=== PATIENT | male | born 1980 | race American Indian/Alaskan Native ===

== ENCOUNTER 2016-04-05 09:34 | Outpatient (CLI) | payer MEDICARE ==
[2016-04-05 10:02] LABS: Basophils % (Auto) 0.8 % (0.0-1.8); Eosinophils % (Auto) 2.1 % (0.0-4.3); Hematocrit 37.4 % (35.5-45.6); Hemoglobin 12.8 gm/dl (11.8-15.2); Mean Corpuscular HGB Conc 34 % (32-34); Mean Corpuscular Hemoglobin 27 pg (28-32); Mean Corpuscular Volume 78 fl (84-94); Platelet Count 334 K/mm3 (140-440); Red Blood Count 4.78 M/mm3 (3.65-5.03); Red Cell Distribution Width 16.1 % (13.2-15.2); White Blood Count 8.9 K/mm3 (4.5-11.0)
[2016-04-05 10:12] LABS: BUN/Creatinine Ratio 18.75; Calcium 8.7 mg/dL (8.4-10.2); Chloride 104.2 mmol/L (98-107); Potassium 4.2 mmol/L (3.6-5.0)
[2016-04-05 10:13] LABS: Bilirubin,Urine NEG (Negative); Blood,Urine MOD (Negative); Ketones,Urine NEG (Negative); Leukocyte Esterase,Urine NEG (Negative); Mucus,Urine FEW /HPF; Nitrite,Urine NEG (Negative); Urobilinogen,Urine < 2.0 mg/dL (<2.0)
== END 2016-04-05 09:35 | disposition home or self-care (01) ==
LOC: LAB 09:34
PROVIDERS: ATTEND Internal Medicine Nephrology
DX: I12.9 Hypertensive chronic kidney disease with stage 1 through stage 4 chronic kidney disease, or unspecified chronic kidney disease (principal); N18.2 Chronic kidney disease, stage 2 (mild); E11.22 Type 2 diabetes mellitus with diabetic chronic kidney disease
CPT/HCPCS: 36415; 80048; 81001; 82570; 84156; 85025

== ENCOUNTER 2016-07-18 08:27 | Outpatient (CLI) | payer MEDICARE ==
[2016-07-18 08:53] LABS: Basophils % (Auto) 0.7 % (0.0-1.8); Eosinophils % (Auto) 2.9 % (0.0-4.3); Hematocrit 36.8 % (35.5-45.6); Hemoglobin 12.5 gm/dl (11.8-15.2); Mean Corpuscular HGB Conc 34 % (32-34); Mean Corpuscular Hemoglobin 27 pg (28-32); Mean Corpuscular Volume 79 fl (84-94); Platelet Count 292 K/mm3 (140-440); White Blood Count 6.7 K/mm3 (4.5-11.0)
[2016-07-18 08:57] LABS: Bacteria,Urine 1+ /HPF (Negative); Bilirubin,Urine NEG (Negative); Blood,Urine MOD (Negative); Ketones,Urine NEG (Negative); Leukocyte Esterase,Urine NEG (Negative); Nitrite,Urine NEG (Negative); Urobilinogen,Urine < 2.0 mg/dL (<2.0)
[2016-07-18 08:59] LABS: Protein,Urine >500 mg/dL (Negative)
[2016-07-18 09:10] LABS: BUN/Creatinine Ratio 15.5; Calcium 8.7 mg/dL (8.4-10.2); Chloride 105.6 mmol/L (98-107); Potassium 4.1 mmol/L (3.6-5.0)
[2016-07-18 09:44] LABS: HIV-1 Antigen p24 Non React (Non React); HIVR-1/2 Ab Non React (Non React)
== END 2016-07-18 08:28 | disposition home or self-care (01) ==
LOC: LAB 08:27
PROVIDERS: ATTEND Internal Medicine Nephrology
DX: I12.9 Hypertensive chronic kidney disease with stage 1 through stage 4 chronic kidney disease, or unspecified chronic kidney disease (principal); N18.3 Chronic kidney disease, stage 3 (moderate); E11.22 Type 2 diabetes mellitus with diabetic chronic kidney disease; R80.0 Isolated proteinuria; R60.0 Localized edema
CPT/HCPCS: 36415; 80048; 81001; 82570; 84156; 85025; 86038; 86160; 86706; 86803; 87806

== ENCOUNTER 2016-11-18 07:57 | Outpatient (CLI) | payer MEDICARE ==
[2016-11-18] MEDS ORDERED: XYLOCAINE TOPICAL 4% TP ONE ×2 (08:24→09:19)
== END 2016-11-18 07:58 | disposition home or self-care (01) ==
LOC: WOUND 07:57
PROVIDERS: ATTEND Podiatrist
DX: E11.621 Type 2 diabetes mellitus with foot ulcer (principal); L97.522 Non-pressure chronic ulcer of other part of left foot with fat layer exposed; L97.512 Non-pressure chronic ulcer of other part of right foot with fat layer exposed; E11.40 Type 2 diabetes mellitus with diabetic neuropathy, unspecified; L84 Corns and callosities; I10 Essential (primary) hypertension; Z87.891 Personal history of nicotine dependence; Z72.89 Other problems related to lifestyle
CPT/HCPCS: 11042; 87075; 87116; G0463; 87186

== ENCOUNTER 2016-11-25 08:10 | Outpatient (CLI) | payer MEDICARE ==
[2016-11-25] MEDS ORDERED: XYLOCAINE TOPICAL 4% TP ONE (08:16)
== END 2016-11-25 08:11 | disposition home or self-care (01) ==
LOC: WOUND 08:10
PROVIDERS: ATTEND Podiatrist
DX: E11.621 Type 2 diabetes mellitus with foot ulcer (principal); L97.522 Non-pressure chronic ulcer of other part of left foot with fat layer exposed; L97.512 Non-pressure chronic ulcer of other part of right foot with fat layer exposed; E11.40 Type 2 diabetes mellitus with diabetic neuropathy, unspecified; I10 Essential (primary) hypertension; Z87.891 Personal history of nicotine dependence; Z72.89 Other problems related to lifestyle

== ENCOUNTER 2018-07-06 08:43 | Outpatient (CLI) | payer MEDICARE ==
[2018-07-06 09:19] LABS: Hematocrit 32.8 % (35.5-45.6); Hemoglobin 11.1 gm/dl (11.8-15.2); Mean Corpuscular HGB Conc 34 % (32-34); Mean Corpuscular Volume 78 fl (84-94); Platelet Count 325 K/mm3 (140-440); Red Blood Count 4.23 M/mm3 (3.65-5.03); Red Cell Distribution Width 16.3 % (13.2-15.2)
[2018-07-06 09:47] LABS: Albumin 3.5 g/dL (3.9-5); Calcium 8.9 mg/dL (8.4-10.2)
== END 2018-07-06 08:44 | disposition home or self-care (01) ==
LOC: LAB 08:43
PROVIDERS: ATTEND Internal Medicine Nephrology
DX: I12.0 Hypertensive chronic kidney disease with stage 5 chronic kidney disease or end stage renal disease (principal); N18.5 Chronic kidney disease, stage 5
CPT/HCPCS: 36415; 80048; 82040; 84100; 85027

== ENCOUNTER 2018-08-10 08:25 | Outpatient (CLI) | payer MEDICARE ==
[2018-08-10 09:03] LABS: Hematocrit 30.8 % (35.5-45.6); Hemoglobin 10.6 gm/dl (11.8-15.2); Mean Corpuscular HGB Conc 34 % (32-34); Mean Corpuscular Volume 76 fl (84-94); Platelet Count 330 K/mm3 (140-440); Red Blood Count 4.03 M/mm3 (3.65-5.03); Red Cell Distribution Width 15.6 % (13.2-15.2)
[2018-08-10 09:16] LABS: Calcium 8.2 mg/dL (8.4-10.2)
== END 2018-08-10 08:26 | disposition home or self-care (01) ==
LOC: LAB 08:25
PROVIDERS: ATTEND Family Medicine
DX: I12.9 Hypertensive chronic kidney disease with stage 1 through stage 4 chronic kidney disease, or unspecified chronic kidney disease (principal); N18.4 Chronic kidney disease, stage 4 (severe); Z86.2 Personal history of diseases of the blood and blood-forming organs and certain disorders involving the immune mechanism
CPT/HCPCS: 36415; 80048; 82040; 84100; 85027

== ENCOUNTER 2018-11-13 08:23 | Outpatient (CLI) | payer MEDICARE ==
[2018-11-13 08:41] LABS: Basophils % (Auto) 0.9 % (0.0-1.8); Eosinophils # (Auto) 0.1 K/mm3 (0.0-0.4); Eosinophils % (Auto) 2.8 % (0.0-4.3); Hematocrit 29.7 % (35.5-45.6); Hemoglobin 10.2 gm/dl (11.8-15.2); Lymphocytes # (Auto) 0.9 K/mm3 (1.2-5.4); Lymphocytes % (Auto) 17.4 % (13.4-35.0); Mean Corpuscular HGB Conc 34 % (32-34); Mean Corpuscular Volume 77 fl (84-94); Monocytes # (Auto) 0.5 K/mm3 (0.0-0.8); Monocytes % (Auto) 10.5 % (0.0-7.3); Platelet Count 332 K/mm3 (140-440); Red Blood Count 3.88 M/mm3 (3.65-5.03)
[2018-11-13 09:12] LABS: Albumin 3.3 g/dL (3.9-5); Calcium 8.7 mg/dL (8.4-10.2)
== END 2018-11-13 08:24 | disposition home or self-care (01) ==
LOC: LAB 08:23
PROVIDERS: ATTEND Internal Medicine Nephrology
DX: I12.0 Hypertensive chronic kidney disease with stage 5 chronic kidney disease or end stage renal disease (principal); N18.5 Chronic kidney disease, stage 5; E55.9 Vitamin D deficiency, unspecified
CPT/HCPCS: 36415; 80048; 82040; 82306; 83970; 84100; 85025

== ENCOUNTER 2019-01-22 08:37 | Outpatient (CLI) | payer MEDICARE ==
[2019-01-22 09:12] LABS: Basophils % (Auto) 0.7 % (0.0-1.8); Eosinophils # (Auto) 0.1 K/mm3 (0.0-0.4); Eosinophils % (Auto) 2.1 % (0.0-4.3); Hematocrit 26.7 % (35.5-45.6); Hemoglobin 8.9 gm/dl (11.8-15.2); Lymphocytes # (Auto) 1.2 K/mm3 (1.2-5.4); Lymphocytes % (Auto) 19.1 % (13.4-35.0); Mean Corpuscular HGB Conc 33 % (32-34); Mean Corpuscular Volume 77 fl (84-94); Monocytes # (Auto) 0.8 K/mm3 (0.0-0.8); Monocytes % (Auto) 13.3 % (0.0-7.3); Platelet Count 333 K/mm3 (140-440); Red Blood Count 3.49 M/mm3 (3.65-5.03); Red Cell Distribution Width 16.7 % (13.2-15.2)
[2019-01-22 09:28] LABS: Albumin 3.4 g/dL (3.9-5); Calcium 8.4 mg/dL (8.4-10.2)
[2019-01-25 12:54] LABS: Vitamin D, 25-OH, D2 <4 ng/mL
== END 2019-01-22 08:38 | disposition home or self-care (01) ==
LOC: LAB 08:37
PROVIDERS: ATTEND Internal Medicine Nephrology
DX: N18.5 Chronic kidney disease, stage 5 (principal); E55.9 Vitamin D deficiency, unspecified; Z88.6 Allergy status to analgesic agent
CPT/HCPCS: 36415; 80048; 82040; 82306; 83970; 84100; 85025

== ENCOUNTER 2019-02-13 13:31 | Outpatient (CLI) | payer MEDICARE ==
[2019-02-13 14:11] LABS: Albumin 3.4 g/dL (3.9-5); Calcium 9.1 mg/dL (8.4-10.2)
== END 2019-02-13 13:32 | disposition home or self-care (01) ==
LOC: LAB 13:31
PROVIDERS: ATTEND Internal Medicine Nephrology
DX: I12.0 Hypertensive chronic kidney disease with stage 5 chronic kidney disease or end stage renal disease (principal); N18.5 Chronic kidney disease, stage 5; Z86.2 Personal history of diseases of the blood and blood-forming organs and certain disorders involving the immune mechanism
CPT/HCPCS: 36415; 80048; 82040; 84100

== ENCOUNTER 2019-03-26 08:20 | Outpatient (CLI) | payer MEDICARE ==
[2019-03-26 08:43] LABS: Basophils % (Auto) 0.8 % (0.0-1.8); Eosinophils # (Auto) 0.3 K/mm3 (0.0-0.4); Eosinophils % (Auto) 4.7 % (0.0-4.3); Hematocrit 25.8 % (35.5-45.6); Hemoglobin 8.8 gm/dl (11.8-15.2); Lymphocytes % (Auto) 18.1 % (13.4-35.0); Mean Corpuscular HGB Conc 34 % (32-34); Mean Corpuscular Volume 78 fl (84-94); Monocytes # (Auto) 0.6 K/mm3 (0.0-0.8); Monocytes % (Auto) 11.5 % (0.0-7.3); Platelet Count 319 K/mm3 (140-440); Red Blood Count 3.29 M/mm3 (3.65-5.03); Red Cell Distribution Width 16.4 % (13.2-15.2)
[2019-03-26 09:24] LABS: Albumin 3.3 g/dL (3.9-5); Calcium 9.3 mg/dL (8.4-10.2)
== END 2019-03-26 08:21 | disposition home or self-care (01) ==
LOC: LAB 08:20
PROVIDERS: ATTEND Internal Medicine Nephrology
DX: N18.5 Chronic kidney disease, stage 5 (principal)
CPT/HCPCS: 36415; 80048; 82040; 83970; 84100; 85025

== ENCOUNTER 2019-04-23 08:36 | Outpatient (CLI) | payer MEDICARE ==
[2019-04-23 08:53] LABS: Basophils # (Auto) 0.1 K/mm3 (0.0-0.1); Basophils % (Auto) 1.3 % (0.0-1.8); Eosinophils # (Auto) 0.2 K/mm3 (0.0-0.4); Eosinophils % (Auto) 5.1 % (0.0-4.3); Hematocrit 22.5 % (35.5-45.6); Hemoglobin 7.7 gm/dl (11.8-15.2); Lymphocytes # (Auto) 0.9 K/mm3 (1.2-5.4); Lymphocytes % (Auto) 19.5 % (13.4-35.0); Mean Corpuscular HGB Conc 34 % (32-34); Mean Corpuscular Volume 79 fl (84-94); Monocytes # (Auto) 0.7 K/mm3 (0.0-0.8); Monocytes % (Auto) 15.6 % (0.0-7.3); Platelet Count 306 K/mm3 (140-440); Red Blood Count 2.86 M/mm3 (3.65-5.03); Red Cell Distribution Width 16.2 % (13.2-15.2)
[2019-04-23 09:15] LABS: Albumin 3.2 g/dL (3.9-5); Calcium 8.9 mg/dL (8.4-10.2)
== END 2019-04-23 08:37 | disposition home or self-care (01) ==
LOC: LAB 08:36
PROVIDERS: ATTEND Internal Medicine Nephrology
DX: N18.5 Chronic kidney disease, stage 5 (principal)
CPT/HCPCS: 36415; 80048; 82040; 84100; 85025

== ENCOUNTER 2019-05-21 08:56 | Outpatient (CLI) | payer MEDICARE ==
[2019-05-21 09:19] LABS: Eosinophils # (Auto) 0.2 K/mm3 (0.0-0.4); Eosinophils % (Auto) 4.8 % (0.0-4.3); Hematocrit 20.3 % (35.5-45.6); Lymphocytes % (Auto) 24.1 % (13.4-35.0); Mean Corpuscular HGB Conc 34 % (32-34); Mean Corpuscular Volume 78 fl (84-94); Monocytes # (Auto) 0.6 K/mm3 (0.0-0.8); Monocytes % (Auto) 15.4 % (0.0-7.3); Platelet Count 306 K/mm3 (140-440); Red Blood Count 2.58 M/mm3 (3.65-5.03); Red Cell Distribution Width 15.8 % (13.2-15.2)
[2019-05-21 09:40] LABS: Albumin 3.2 g/dL (3.9-5); Calcium 8.4 mg/dL (8.4-10.2)
== END 2019-05-21 08:57 | disposition home or self-care (01) ==
LOC: LAB 08:56
PROVIDERS: ATTEND Internal Medicine Nephrology
DX: N18.5 Chronic kidney disease, stage 5 (principal)
CPT/HCPCS: 36415; 80048; 82040; 84100; 85025

== ENCOUNTER 2019-08-07 05:54 | Day surgery (SDC) | payer MEDICARE ==
[2019-08-07] MEDS ORDERED: SODIUM CHLORIDE 0.9% 1000 ML 1,000 ML IV SCH (06:00)
[2019-08-07] MEDS ORDERED: MIDAZOLAM 2 MG/2 ML INJ IV NR (06:00)
[2019-08-07] MEDS ORDERED: ceFAZolin/Water 2 GM/20 ML 2 GM/20 ML SYRINGE IV NR (06:00)
[2019-08-07] MEDS ORDERED: fentaNYL 100 MCG/2 ML INJ IV PRN ×2 (06:00→07:19)
--- NOTE | 2019-08-07 07:21 | Anesthesia Day of Surgery ---
Anesthesia Day of Surgery - Day of Surgery Patient Examined: Yes Patient H&P Reviewed: Yes Patient is NPO: Yes
--- NOTE | 2019-08-07 07:21 | Anesthesia Consultation ---
Anesthesia Consult and Med Hx Date of service: 08/07/19 - Airway Anesthetic Teeth Evaluation: Good ROM Head & Neck: Adequate Mental/Hyoid Distance: Adequate Mallampati Class: Class II Intubation Access Assessment: Probably Good - Pulmonary Exam CTA: Yes - Cardiac Exam Cardiac Exam: RRR - Pre-Operative Health Status ASA Pre-Surgery Classification: ASA3 Proposed Anesthetic Plan: General - Pre-Anesthesia Comment Pre-Anesthesia Comments: Patient declines nerve block and requests GA. - Pulmonary Hx Smoking: No Hx Respiratory Symptoms: No Hx Sleep Apnea: No (SNORES) - Cardiovascular System Hx Hypertension: Yes (took antihypertensives) Hx Heart Attack/AMI: No Hx Percutaneous Transluminal Coronary Angioplasty (PTCA): No - Central Nervous System CVA: No Hx Psychiatric Problems: No - Gastrointestinal Hx Gastroesophageal Reflux Disease: No - Endocrine Hx End Stage Renal Disease: Yes (last HD 08/06/2019) Hx Liver Disease: No Hx Insulin Dependent Diabetes: Yes (sliding scale) Hx Thyroid Disease: No - Hematic Hx Anemia: Yes Hx Sickle Cell Disease: No - Other Systems Hx Alcohol Use: Yes (OCC. MIXED DRINK) - Additional Comments Anesthesia Medical History Comments: No hx anesthetic complications.
[2019-08-07 07:26] LABS: Hematocrit 38.4 % (35.5-45.6); Mean Corpuscular HGB Conc 34 % (32-34); Mean Corpuscular Volume 84 fl (84-94); Platelet Count 211 K/mm3 (140-440); Red Blood Count 4.58 M/mm3 (3.65-5.03); Red Cell Distribution Width 17.5 % (13.2-15.2)
[2019-08-07] MEDS ORDERED: HYDROmorphone 1 MG/1 ML INJ ONE (07:33)
[2019-08-07] MEDS ORDERED: propofoL 200 MG/20 ML VIAL IV ONE ×2 (07:34→08:35)
[2019-08-07] MEDS ORDERED: LIDOCAINE MPF (2%) 20 MG/1 ML VIAL 5 ML ONE (07:34)
[2019-08-07] MEDS ORDERED: SODIUM CHLORIDE 0.9% 250ML 250 ML ONE (07:38)
[2019-08-07] MEDS ORDERED: HEPARIN 10,000 UNITS/10 ML VIAL ONE (07:38)
[2019-08-07 07:39] LABS: Calcium 8.9 mg/dL (8.4-10.2)
[2019-08-07] MEDS ORDERED: SODIUM CHLORIDE 0.9% 500 ML 500 ML ONE (07:39)
[2019-08-07] MEDS ORDERED: rifAMPin 600 MG VIAL ONE (07:40)
[2019-08-07] MEDS ORDERED: BUPIVACAINE/PF (0.5%) 5 MG/1 ML 10 ML VIAL INFILTRATI ONE ×2 (07:40→08:55)
[2019-08-07] MEDS ORDERED: SODIUM CHLORIDE 0.9% 500 ML IVPB IRRIGATION ONE (08:54)
[2019-08-07] MEDS ORDERED: HEPARIN 10,000 UNITS/10 ML VIAL IR ONE (08:54)
[2019-08-07] MEDS ORDERED: SODIUM CHLORIDE 0.9% IRR 1,500 ML BOTTLE IR ONE (08:55)
[2019-08-07] MEDS ORDERED: SODIUM CHLORIDE 0.9% 250 ML IVPB IR ONE (09:46)
--- NOTE | 2019-08-07 10:55 | Short Stay Summary ---
Short Stay Documentation Date of service: 08/07/19 Narrative H&P: See H&P - History H&P: obtained from office - Allergies and Medications Current Medications: Allergies tramadol Allergy (Verified 11/18/16 08:29) Vomiting Home Medications Medication Instructions Recorded Confirmed Last Taken Type Insulin Detemir (Nf) [Levemir See Protocol SQ QAC 12/03/15 08/07/19 07/05/19 08:00 History Flextouch (Nf)] Insulin Glargine,Hum.rec.anlog 30 units SQ QHS 12/03/17 08/07/19 07/24/19 21:00 History [Toujeo Solostar] amLODIPine 10 mg PO DAILY 12/03/17 08/07/19 08/07/19 05:00 History hydrALAZINE [Apresoline TAB] 100 mg PO TID #90 tab 12/09/17 08/07/19 08/07/19 05:00 Rx Active Medications Fentanyl (Sublimaze) 50 mcg IV Q5MIN PRN PRN Reason: Pain , Severe (7-10) Stop: 08/07/19 23:00 Cefazolin Sodium (Ancef/Sterile Water 2 Gm/20 Ml) 2 gm in 20 mls @ 80 mls/hr IV PREOP NR; Protocol Stop: 08/07/19 23:59 Sodium Chloride (Nacl 0.9% 1000 Ml) 1,000 mls @ 42 mls/hr IV DIRECT BAMBI Stop: 08/07/19 23:59 Last Admin: 08/07/19 07:30 Dose: 42 mls/hr Documented by: Midazolam HCl (Versed) 2 mg IV PREOP NR Stop: 08/07/19 23:59 Last Admin: 08/07/19 07:40 Dose: 2 mg Documented by: - Brief post op/procedure progress note Date of procedure: 08/07/19 Pre-op diagnosis: End-Stage Renal Disease Post-op diagnosis: same Procedure: 1. Creation of Left Brachial Artery to Left Axillary Vein AV Graft with 7 mm Bovine Artegraft Anesthesia: GETA Surgeon: JAMEEL WATSON Estimated blood loss: minimal Pathology: none Condition: stable - Disposition Condition at discharge: Good Disposition: DC-01 TO HOME OR SELFCARE Short Stay Discharge Plan Activity: other (No heavy lifting with left arm for 2 weeks.) Wound: open to air, keep clean and dry, other (Okay to Wash the Left Arm Wound with Soap and Water but Do Not Soak in Water for 2 Weeks.) Follow up with: JAMEEL WATSON MD [Staff Physician] - 14 Days Prescriptions: HYDROcodone/APAP 7.5-325 [[place] 7.5/325] 1 each PO Q6HR PRN #40 tablet PRN Reason: Pain
--- NOTE | 2019-08-07 11:00 | Operative Report ---
Operative Report Operative Report: Date of procedure: 08/07/2019 Pre-operative diagnosis: End-Stage Renal Disease Post-operative diagnosis: Same Procedure(s): 1. Creation of Left Brachial Artery to Axillary Vein AV Graft with 7 mm Bovine Graft Artergraft Surgeon: Sandro Floyd MD Stereo Map Plotter Operator: None Anesthesia: General Endotracheal Anesthesia EBL: Minimal Counts: Correct Complications: None Condition: Stable Findings: Exploration of the cephalic vein demonstrated that the vein was atretic and not adequate for creation of a fistula. The arteriovenous graft had a palpable thrill and there was a palpable radial pulse at the completion of the case. Specimen: None Indication: The patient is a 39-year-old male with a history of end-stage renal disease who is currently on hemodialysis through a right internal jugular permacath. He is in need of permanent dialysis access and a vein mapping suggested that he was a candidate for creation of an arteriovenous fistula. He was given the risk, benefits, and alternative procedures and consented to the procedure. Description of Procedure: The patient was brought to the operating room and laid in supine position after general endotracheal anesthesia was achieved the left arm was prepped and draped in normal sterile fashion. A transverse incision was created just below the antecubital crease and carried down to the cephalic vein using sharp dissection. The cephalic vein was explored and found to be atretic, likely secondary to lab draws, and was not adequate for creation of a brachiocephalic fistula. I used ultrasound to explore the remainder of the vein and the vein throughout the remainder the arm appeared to be atretic throughout. I was able to dissect the brachial artery through this incision. The brachial artery was dissected out circumferentially both proximally and distally and controlled with vessel loops. A second incision was created in longitudinal fashion on the medial aspect of the arm just distal to the axillary crease and carried down to the axillary vein using sharp dissection. Axillary vein was dissected out circumferentially and controlled with a vessel loop. I then used a Aliyah-Wick tunneler to tunnel from the brachial artery incision to the axillary vein incision and then put an 7 mm bovine through the tunnel. I infused with heparinized saline to ensure that it was not twisted or kinked. I put the brachial artery vessel loops on tension controlling the flow and then created an arteriotomy using an 11 blade and Yang scissors. I beveled the graft and created an end-to-side anastomosis using 6-0 Prolene running fashion. I clamped the graft just proximal to the anastomosis and then released the vessel loops restoring flow in the brachial artery. I placed quick clot in incision to achieve hemostasis. I cut the proximal end of the graft to the appropriate length and beveled the graft in preparation for a venous anastomosis. I controlled the axillary vein a Satinsky clamp and created a venotomy using an 11 blade and Yang scissors. I created an end to side anastomosis using a 6-0 Prolene in running fashion. Prior to completing the anastomosis I flushed the graft to ensure there was no thrombus and then completed the anastamosis. I released all clamps allowing flow into the AV graft which had an excellent thrill. I packed the wound with quick clot to achieve hemostasis. I anesthetized both wounds with 0.5% Marcaine and then closed both wounds in 2 layers using 3-0 Vicryl in running fashion in the deep dermal layer and 4-0 Monocryl in running fashion the subcuticular layer. I dressed both wounds with Dermabond. The patient tolerated the procedure well all sponge needle and instrument counts were correct the patient was taken to recovery in stable condition.
[2019-08-07 11:59] VITALS: BP 144/81
[2019-08-07] MEDS ORDERED: HYDROcodone/ACETAMINOPHEN 7.5-325MG TAB PO PRN (12:00)
--- NOTE | 2019-08-07 14:37 | Post Anesthesia Evaluation ---
- Post Anesthesia Evaluation Patient Participated: Yes Airway Patent: Yes Stable Respiratory Function: Yes Nausea/Vomiting: No Temp > 96.8F: Yes Pain Manageable: Yes Adequeate Hydration: Yes Anesthesia Complications: No
== END 2019-08-07 12:40 | disposition home or self-care (01) ==
LOC: OR 05:54
PROVIDERS: ATTEND Surgery Vascular Surgery
DX: I12.0 Hypertensive chronic kidney disease with stage 5 chronic kidney disease or end stage renal disease (principal); E11.22 Type 2 diabetes mellitus with diabetic chronic kidney disease; N18.6 End stage renal disease; G43.909 Migraine, unspecified, not intractable, without status migrainosus; K21.9 Gastro-esophageal reflux disease without esophagitis; D64.9 Anemia, unspecified; Z72.89 Other problems related to lifestyle; Z98.890 Other specified postprocedural states; Z79.899 Other long term (current) drug therapy; Z79.4 Long term (current) use of insulin; Z88.8 Allergy status to other drugs, medicaments and biological substances
CPT/HCPCS: 36415; 36830; 80048; 82962; 85027; J0690; J1170; J1644; J2250; J2704; J3010; J3490; J7030; J7040; J7050; C1768

== ENCOUNTER 2020-06-25 12:41 | Emergency (ER) | payer MEDICARE ==
--- NOTE | 2020-06-25 14:19 | Emergency Department Report ---
Blank Doc - Documentation Documentation: 40-year-old male that was sent by PCP and missed dialysis for uncontrolled hyp ertension. 1- This initial assessment/diagnostic orders/clinical plan/ treatment(s) is/are subject to change based on pt's health status, clinical progression and re- assessment by fellow clinical providers in the ED. Further treatment and workup at subsequent clinical provers discretion. Patient/guardians urged not to elope from ED as their condition may be serious if not clinically assessed and managed. 2-labs 3-UA 4-EKG
[2020-06-25 14:38] LABS: Basophils # (Auto) 0.1 K/mm3 (0.0-0.1); Basophils % (Auto) 1.1 % (0.0-1.8); Eosinophils # (Auto) 0.1 K/mm3 (0.0-0.4); Eosinophils % (Auto) 2.7 % (0.0-4.3); Hematocrit 25.2 % (35.5-45.6); Hemoglobin 8.6 gm/dl (11.8-15.2); Lymphocytes # (Auto) 1.1 K/mm3 (1.2-5.4); Mean Corpuscular HGB Conc 34 % (32-34); Mean Corpuscular Volume 82 fl (84-94); Monocytes # (Auto) 0.8 K/mm3 (0.0-0.8); Platelet Count 263 K/mm3 (140-440); Red Blood Count 3.06 M/mm3 (3.65-5.03)
[2020-06-25 14:40] LABS: Red Cell Distribution Width 20.9 % (13.2-15.2)
[2020-06-25 15:01] LABS: Albumin 3.2 g/dL (3.9-5); Calcium 9.2 mg/dL (8.4-10.2)
[2020-06-25] MEDS ORDERED: carvediloL 6.25 MG TAB PO ONE (17:19)
[2020-06-25] MEDS ORDERED: hydrALAZINE 100 MG TAB PO ONE (17:19)
--- NOTE | 2020-06-25 17:25 | Emergency Department Report ---
ED General Adult HPI - General Chief complaint: High BP Stated complaint: HBP Time Seen by Provider: 06/25/20 14:16 Source: patient, EMS Mode of arrival: Wheelchair Limitations: No Limitations - History of Present Illness Initial comments: 40-year-old male patient with history of hypertension and end-stage renal disease (on dialysis) presents to the emergency department for evaluation of elevated blood pressure reading earlier today during his dialysis session. Patient admits that he forgot to take his blood pressure medications this morning. The dialysis nurses sent him to the emergency department. States he is usually compliant with his antihypertensive medication regimen. States he has plenty of his medications at home and will resume his nighttime meds upon returning home. Patient is asymptomatic without complaints. - Related Data Home Medications Medication Instructions Recorded Confirmed Last Taken Insulin Detemir (Nf) [Levemir See Protocol SQ QAC 12/03/15 06/13/20 07/05/19 08:00 Flextouch (Nf)] Insulin Glargine,Hum.rec.anlog 30 units SQ QHS 12/03/17 06/13/20 07/24/19 21:00 [Jennifer Alexander] amLODIPine 10 mg PO DAILY 12/03/17 06/13/20 08/07/19 05:00 Previous Rx's Medication Instructions Recorded Last Taken Type hydrALAZINE [Apresoline TAB] 100 mg PO TID #90 tab 12/09/17 08/07/19 05:00 Rx HYDROcodone/APAP 7.5-325 [[place] 1 each PO Q6HR PRN #40 tablet 08/07/19 Unknown Rx 7.5-325 mg TAB] OLANZapine [Zyprexa] 5 mg PO DAILY #30 tablet 06/13/20 Unknown Rx Pantoprazole [Protonix TAB] 40 mg PO QDAC #30 tablet 06/13/20 Unknown Rx Valproic Acid [Depakene] 250 mg PO TID #90 capsule 06/13/20 Unknown Rx labetaloL [Labetalol 200mg TAB] 200 mg PO BID #60 tablet 06/13/20 Unknown Rx oxyCODONE /ACETAMINOPHEN [Percocet 1 tab PO BID PRN #6 tablet 06/13/20 Unknown Rx 5/325] traZODone [Desyrel] 50 mg PO QHS #30 tab 06/13/20 Unknown Rx Allergies Allergy/AdvReac Type Severity Reaction Status Date / Time tramadol Allergy Vomiting Verified 06/25/20 13:08 ED Review of Systems ROS: Stated complaint: HBP Other details as noted in HPI Other: GENERAL: Negative for fever, chills, weight change, anorexia, fatigue. ENT: Negative for ear pain, difficulty hearing, sore throat, nasal congestion, epistaxis. CARDIOVASCULAR: Negative for chest pain, palpitations, lower extremity swelling. PULMONARY: Negative for cough, dyspnea, wheezing, orthopnea, cyanosis. GASTROINTESTINAL: Negative for abdominal pain, nausea, vomiting, diarrhea, constipation. MUSCULOSKELETAL: Negative for joint pain, joint swelling, myalgias, back pain, neck pain. NEUROLOGICAL: Negative for headache, seizure, syncope, paresthesias, weakness. INTEGUMENTARY: Negative for erythema, rash, diaphoresis, laceration, ecchymosis. HEMATOLOGICAL: Negative for hemoptysis, hematemesis, hematochezia, hematuria. PSYCHIATRIC: Negative for hallucinations, suicidal ideation, homicidal ideation, anxiety, depression. ED Past Medical Hx - Past Medical History Hx Hypertension: Yes Hx Heart Attack/AMI: No Hx Congestive Heart Failure: No (Pt unable to communicate due to increase drowsiness and confusion) Hx Diabetes: Yes Hx Deep Vein Thrombosis: No Hx GERD: Yes Hx Liver Disease: No Hx Renal Disease: No Hx Sickle Cell Disease: No Hx Headaches / Migraines: Yes (MIGRAINES) Hx Kidney Stones: No Hx Asthma: No Hx Tuberculosis: No Hx HIV: No Additional medical history: 1 year ago incision and drain to right knee - Surgical History Hx Coronary Stent: No Hx Pacemaker: No Hx Internal Defibrillator: No Additional Surgical History: Knee surgery s/t sepsis - Social History Smoking Status: Never Smoker Substance Use Type: None - Medications Home Medications: Home Medications Medication Instructions Recorded Confirmed Last Taken Type Insulin Detemir (Nf) [Levemir See Protocol SQ QAC 12/03/15 06/13/20 07/05/19 08: 00 History Flextouch (Nf)] Insulin Glargine,Hum.rec.anlog 30 units SQ QHS 12/03/17 06/13/20 07/24/19 21:00 History [Jennifer Alexander] amLODIPine 10 mg PO DAILY 12/03/17 06/13/20 08/07/19 05:00 History hydrALAZINE [Apresoline TAB] 100 mg PO TID #90 tab 12/09/17 06/13/20 08/07/19 05:00 Rx HYDROcodone/APAP 7.5-325 [[place] 1 each PO Q6HR PRN #40 tablet 08/07/19 06/13/20 Unknown Rx 7.5-325 mg TAB] OLANZapine [Zyprexa] 5 mg PO DAILY #30 tablet 06/13/20 Unknown Rx Pantoprazole [Protonix TAB] 40 mg PO QDAC #30 tablet 06/13/20 Unknown Rx Valproic Acid [Depakene] 250 mg PO TID #90 capsule 06/13/20 Unknown Rx labetaloL [Labetalol 200mg TAB] 200 mg PO BID #60 tablet 06/13/20 Unknown Rx oxyCODONE /ACETAMINOPHEN [Percocet 1 tab PO BID PRN #6 tablet 06/13/20 Unknown Rx 5/325] traZODone [Desyrel] 50 mg PO QHS #30 tab 06/13/20 Unknown Rx ED Physical Exam - General Limitations: No Limitations - Other Other exam information: General: Awake and alert. No acute distress. Head: Atraumatic, normocephalic. Eyes: EOMI. Pupils are equal and round. Normal sclera and conjunctiva. ENT: Oral mucosa is moist. Normal pharyngeal exam. Neck: Supple. No lymphadenopathy. Pulmonary: No respiratory distress. Clear to auscultation bilaterally. Cardiac: Regular rate and rhythm. Pulses are palpable and equal bilaterally. No lower extremity cyanosis or edema. Skin: Warm and dry. No rashes. Abdomen: Soft, non-tender, non-protuberant. No guarding, rigidity, or rebound. Bowel sounds are normal. No organomegaly or masses noted. Back: Normal alignment. No CVA tenderness. Extremities: Symmetrical. Full range of motion intact. Neurological: Alert and oriented, appropriately interactive, no focal deficits. Psych: Cooperative. Appropriate mood and affect. Speech is evenly metered. Thoughts are logically construed. ED Course Vital Signs 06/25/20 06/25/20 13:09 19:20 Temperature 98.3 F Pulse Rate 86 70 Respiratory 18 16 Rate Blood Pressure 183/102 Blood Pressure 118/63 [Right] O2 Sat by Pulse 97 96 Oximetry ED Medical Decision Making - Lab Data Result diagrams: 06/25/20 14:20 06/25/20 14:20 - Medical Decision Making Differential diagnosis including but not limited to: hypertensive emergency, chronic hypertension, dehydration, electrolyte abnormality, pulmonary edema, uremia Patient presents to the emergency department at the instruction of his dialysis center due to elevated blood pressure reading. Patient has a well-documented history of hypertension. He takes blood pressure medication multiple times per day. He states he accidentally forgot to take his medications before going to dialysis earlier today. He has refills of his medications and plans to take them as prescribed upon returning home. Patient is otherwise asymptomatic with no complaints. Specifically, patient denies chest pain, shortness of breath, palpitations, headache, visual disturbance, weakness, paresthesias. His blood pressure is noted to be elevated in the emergency; he is otherwise h emodynamically stable with nonfocal neurological exam. Labs obtained by provider during medical screening exam reviewed and found to be consistent with patient's baseline. No clinical indication for further diagnostic work-up on an emergent basis at this time per current ACEP guidelines regarding asymptomatic hypertension. Patient has a list of his medications with him. Blood pressure will be rechecked after he has been given a dose of his regularly scheduled medicines. Plan for discharge home. Repeat blood pressure is 118/63. History, exam, diagnostic testing, and current condition do not suggest worrisome pathology to warrant further testing, continued ED treatment, admission, or surgical evaluation at this point. Given the low probability of a significant medical illness, it would be more likely to result in harm than benefit to perform further testing at this stage. Discussed findings, presumptive diagnosis, need for follow-up and specific signs/symptoms that should prompt immediate return to the emergency department. Instructions were explained in detail to the patient in addition to giving written discharge information. Patient expressed understanding and was given the opportunity to ask questions, all of which were satisfactorily answered prior to discharge home. Critical care attestation.: If time is entered above; I have spent that time in minutes in the direct care of this critically ill patient, excluding procedure time. ED Disposition Clinical Impression: Asymptomatic hypertension Disposition: DC-01 TO HOME OR SELFCARE Is pt being admited?: No Does the pt Need Aspirin: No Condition: Stable Instructions: Hypertension, Adult, Xqos-he-Aior, Hypertension (ED) Additional Instructions: Continue all medications as previously prescribed. Do not skip doses of your medicines. Resume dialysis on Saturday, [facility], as previously scheduled. Follow-up with your primary care provider within 1 week. Call tomorrow to schedule an appointment. Return to the emergency department immediately for new or worsening symptoms. Specifically, return to the emergency department immediately for chest pain, shortness of breath, palpitations, mental status changes, lower extremity swelling, rash, headache, vision changes, numbness, weakness, or any other concerns. Referrals: ADELAIDA SHELLEY MD [Staff Physician] - 3-5 Days Time of Disposition: 18:22
[2020-06-25 22:25] VITALS: BP 118/63
== END 2020-06-25 19:20 | disposition home or self-care (01) ==
LOC: ED 12:41
DX: I10 Essential (primary) hypertension (principal); E11.9 Type 2 diabetes mellitus without complications; K21.9 Gastro-esophageal reflux disease without esophagitis; G43.909 Migraine, unspecified, not intractable, without status migrainosus; Z98.890 Other specified postprocedural states; Z79.4 Long term (current) use of insulin; Z79.899 Other long term (current) drug therapy; Z88.8 Allergy status to other drugs, medicaments and biological substances
CPT/HCPCS: 36415; 80053; 85025